=== PATIENT | female | born 1995 | race Caucasian/White ===

== ENCOUNTER 2021-05-02 08:54 | Emergency (ER) | payer BC, SELFPAY ==
[2021-05-02 09:07] VITALS: BP 141/93; PULSE 91; RESP 18; TEMP 36.2; O2SAT 100
--- NOTE | 2021-05-02 09:18 | ED.URI ---
HPI - URI/Sore Throat General Chief Complaint: Upper Respiratory Infection Stated Complaint: Sore Throat History of Present Illness HPI Narrative: This is a 25-year-old that comes in complaining of a sore throat states that she had it for approximately 3 days. Patient states that her symptoms sore throat has since resolved but she wakes up every morning and her throat is irritated with some sinus nasal drainage. Patient denies any fever nausea vomiting and/or diarrhea. Related Data Home Medications Medication Instructions Recorded Confirmed cetirizine [Zyrtec] 10 mg PO DAILY 05/02/21 05/02/21 Allergies Allergy/AdvReac Type Severity Reaction Status Date / Time No Known Allergies Allergy Verified 05/02/21 09:13 Review of Systems Review of Systems: CONSTITUTIONAL: Denies fever, chills, or sweats. EYES: Denies visual changes, redness, or discharge. ENT: Reports rhinorrhea, congestion, sore throat, or otalgia. CARDIOVASCULAR:Denies chest pain, palpitations, or edema. RESPIRATORY: Denies cough or dyspnea. GASTROINTESTINAL: Denies abdominal pain, nausea, vomiting, or diarrhea. GENITOURINARY: Denies dysuria or hematuria. SKIN:[Denies rash or itching. MUSCULOSKELETAL:Denies back pain, joint pain, or myalgia. NEUROLOGIC: Denies headache, numbness, or weakness. PSYCHIATRIC:Denies anxiety or depression PMFSH Comments At time as signature, I have reviewed and agree with nursing past medical, social, surgical and family history. Please see nursing chart for further information. There is no relevant family history pertinent to the presenting complaint. Exam Narrative: GENERAL:Well-appearing, well-nourished, and in no acute distress. HEAD:Normocephalic, atraumatic. EYES: PERRLA and EOMI. ENT: Nares clear, no rhinorrhea or epistaxis. Mucous membranes moist. Postnasal drainage tonsils normal size NECK: Supple. CHEST: Clear to auscultation. No respiratory distress. HEART: Regular rate and rhythm. ABDOMEN: Soft, nontender, nondistended, normal active bowel sounds. EXTREMITIES: Normal range of motion. No edema. SKIN: Warm, dry, no rash. NEURO: No focal deficits. Alert and oriented x3. Course Vital Signs Vital signs: Vital Signs Temperature 97.2 F L 08/03/21 09:07 Pulse Rate 91 05/02/21 09:07 Respiratory Rate 18 05/02/21 09:07 Blood Pressure 141/93 H 05/02/21 09:07 Pulse Oximetry 100 05/02/21 09:07 Temperature 97.2 F L 05/02/21 09:07 Pulse Rate 91 05/02/21 09:07 Respiratory Rate 18 05/02/21 09:07 Blood Pressure 141/93 H 05/02/21 09:07 Pulse Oximetry 100 05/02/21 09:07 MDM - URI/Sore Throat Differential Diagnosis Differential diagnosis: Likely upper respiratory infection, croup, otitis media, sinusitis, viral infection, bronchitis, influenza and pharyngitis Medical Records Attestation: I reviewed the patient's medical records. Lab Data Attestation: I reviewed the patient's lab results. Lab results narrative: Strep is negative Labs: Strep Screen Presumptive Negative *(Reference Range: Negative)* Discharge Plan Discharge Clinical Impression: Upper respiratory infection Qualifiers: URI type: unspecified viral URI Qualified Code(s): J06.9 - Acute upper respiratory infection, unspecified Patient Disposition: Home, Self-Care Condition: Stable Instructions: Antibiotic Form, Upper Respiratory Infection (ED), Chronic Hypertension (ED), Viral Syndrome (ED) Additional Instructions: Viral illness may last between 7-12days; antibiotic is NOT recommended at this time. Recommend antihistamine such as Benadryl at night time and Claritin/Zyrtec/Faith during the day Also, recommend symptomatic treatment includes: rest, fluids, and increase humidity of the air at home. Recommend Acetaminophen or nonsteroidal anti-inflammatory agents (NSAIDs) as directed in the bottle to reduce fever and/pain/headache. Avoid smoking/second-venegas
== END 2021-05-02 09:46 | disposition home or self-care (01) ==
PROVIDERS: Emergency Provider Nurse Practitioner Family
DX: J06.9 Acute upper respiratory infection, unspecified (principal)
CPT/HCPCS: 87081; 87880; 99203; G0463

== ENCOUNTER 2024-10-31 11:25 | Emergency (ER) | payer OTHER, SELFPAY ==
--- OUTSIDE RECORDS SUMMARY | 2024-10-31 11:27 | XMS_ITS | Referral Summary ---
Author Organization [facility] [employer] Address [address] [place] [address] Care Team Providers Care Beer Still Runner Compounder Name Role Phone Unavailable Primary Care Provider Unavailabl e Source Comments [facility],non-owned Affiliates and Associated Physician Practices is amultiple site organization consisting of ambulatory clinics and hospital sitesin [place], [place], [place] and [place]. This disclosure is being madepursuant to the Care Everywhere program and may not contain all information available regarding this patient. Last updated 18.[facility] [employer] Allergies No known active allergies Immunizations Name Administration Dates Next Due DTaP VACCINE IM (6wk-6yrs) 11/21/2001,,04/09/1997,02/16/1997, 1996 HEP B VACCINE, PED/ADOL 10/22/1997,06/11/1997, HIB-PRP-T 4 DOSE 10/22/1997,04/09/1997, 7,1996 MENINGOCOCCAL CONJUGATE (MCV4P) 04/28/2015 MENINGOCOCCAL MCV4O 05/09/2011 MMR 11/21/2001,10/22/1997 POLIO IPV 11/21/2001,04/09/1997,02/16/1997 ,1996 TDAP (7yrs+) 05/09/2011 Social History Tobacco Use Types Packs/Day Years Used Date Smoking Tobacco: Never Assessed Sex and Gender Information Value Date Recorded Sex Assigned at Not on file Gender Identity Not on file Sexual Orientation Not on file Plan of Treatment Not on file Administered Medications
--- OUTSIDE RECORDS SUMMARY | 2024-10-31 11:27 | XMS_ITS | Clinical Summary ---
Author Organization [facility] [employer] Address [address] [place] [address] Care Team Providers Care Forklift Driver Name Role Phone Unavailable Primary Care Provider Unavailabl e Source Comments [facility],non-owned Affiliates and Associated Physician Practices is amultiple site organization consisting of ambulatory clinics and hospital sitesin [place], [place], [place] and [place]. This disclosure is being madepursuant to the Care Everywhere program and may not contain all information available regarding this patient. Last updated 18.[facility] [employer] Allergies No known active allergies Immunizations Name [...] Orientation Not on file Plan of Treatment Health Maintenance Due Date Last Done Comments PAP SMEAR 1996 HIV SCREENING 2011 HEPATITIS C SCREENING 07/02/2014 DTAP/TDAP/TD VACCINES (7 - Td or Tdap) 05/09/2021 05/09/2011, 11/21/2001, 10/22/1997, Additional history exists COVID-19 VACCINE ( season) 2024 11/15/2020, 10/26/2020 INFLUENZA VACCINE (#1) 2024 07/08/2020 DEPRESSION SCREENING 09/30/2024 ZOSTER VACCINE (1 of 2) 2046 HEPATITIS B VACCINE Completed 10/22/1997, 06/11/1997, 04/09/1997 HIB VACCINE Completed 10/22/1997, 03/30, 02/16/1997, Additional history exists MENINGOCOCCAL VACCINE Completed 04/28/2015, 011 HPV VACCINE Aged Out No longer eligi ble based on patient's age to complete this topic MENINGOCOCCAL (Group B) VACCINE Aged Out No longer eligible based on patient's age to complete this topic PNEUMOCOCCAL VACCINE Aged Out No long er eligible based on patient's age to complete this topic
--- OUTSIDE RECORDS SUMMARY | 2024-10-31 11:27 | XMS_ITS | Patient Health Summary ---
Author Organization [facility] [employer] Address [address] [place] [address] Care Team Providers Care Software Product Manager Name Role Phone Unavailable Primary Care Provider Unavailabl e Note from [facility],non-owned Affiliates and Associated Physician Practices is amultiple site organization consisting of ambulatory clinics and hospital sitesin [place], [place], [place] and [place]. This disclosure is being madepursuant to the Care Everywhere program and may not contain all information available regarding this patient. Last updated 18.[facility] [employer] Allergies No known active allergies Immunizations * DTaP VACCINE IM (6wk-6yrs)(Given 11/21/2001, 10/22/1997, 04/09/1997, 02/16/1997, 1996) * HEP B VACCINE, PED/ADOL(Given 10/22/1997, 06/11/1997, 04/09/1997) * HIB-PRP-T 4 DOSE(Given 10/22/1997, 04/09/1997, 02/16/1997, 1996) * MENINGOCOCCAL CONJUGATE (MCV4P)(Given 04/28/2015) * MENINGOCOCCAL MCV4O(Given 05/09/2011) * MMR(Given 11/21/2001, 10/22/1997) * POLIO IPV(Given 11/21/2001, 04/09/1997, 02/16/1997, 1996) * TDAP (7yrs+)(Given 05/09/2011) Social History Tobacco Use Types Packs/Day Years Used Date Smoking Tobacco: Never Assessed Sex and Gender Information Value Date Recorded Sex Assigned at Not on file Gender Identity Not on file Sexual Orientation Not on file Procedures * SKIN TEST PPD - POINT OF CARE(Performed 04/22/2021) Performed for Encounter for screening for respiratory tuberculosis * SKIN TEST PPD - POINT OF CARE(Performed 06/05/2019) Performed for Screening examination for pulmonary tuberculosis Results * SKIN TEST PPD - POINT OF CARE (04/22/2021 10:34 AM CDT) Only the most recent of2 resultswithin the time period is included. PPD no show [facility] Other MISCELLANEOUS SAMPLE S / Unknown 04/22/2021 10:34 AM CDT Micki Rao APRN-[facility] - POINT OF CARE ORDERABLES [facility] [phone]
[2024-10-31 11:50] VITALS: BP 128/79; PULSE 74; RESP 16; TEMP 36.3; O2SAT 100
--- NOTE | 2024-10-31 12:35 | ED_ITS ---
HPI - URI/Sore Throat General Chief Complaint: Upper Respiratory Infection Stated Complaint: Left Ear Pain Time Seen by Provider: 10/31/24 12:25 Source: patient, family, RN notes reviewed and old records reviewed Mode of arrival: ambulatory Limitations: no limitations History of Present Illness HPI Narrative: 29 year old female who presents to [facility] care with complaints of bilateral ear pressure, tinnitus,with pain to her right ear for the past 4 days with cold symptoms for the past week duration with hoarseness scratchy sore throat.. Patient reports history of ear problems in past with previous ear tubes. Patient reports that she has been taking Sudafed and Mucinex for her symptoms., reports no fevers. MD elicited complaint: nasal congestion and other (ear pain,) Pertinent past history: tympanostony tubes Onset (ago): week(s) (cold symptoms 1 week with hoarseness and 4 days of ear pressure) Pain scale (0-10): 6 Able to tolerate fluids by mouth: Yes Treatments prior to arrival: other (mucinex, sudafed) Related Data Home Medications ?Medication ?Instructions ?Recorded ?Confirmed ?Last Taken ?Type semaglutide (weight loss) subcut 10/31/24 Unknown History Allergies Allergy/AdvReac Type Severity Reaction Status Date / Time tramadol Allergy Severe Nausea Verified 10/31/24 12:16 Review of Systems Review of Systems: CONSTITUTIONAL: Denies malaise, chills, sweats, or fever. EYES: Denies visual changes, redness, or discharge. ENT: Reports rhinorrhea, congestion, sinus pain, right otalgia and scratchy sore throat. CARDIOVASCULAR: Denies chest pain, palpitations, or edema. RESPIRATORY: Reports dry cough.? Denies dyspnea. GASTROINTESTINAL: Denies abdominal pain, nausea, vomiting, diarrhea SKIN: Denies rash or itching. MUSCULOSKELETAL: Denies myalgia. NEUROLOGIC: Denies headache. All systems reviewed & are unremarkable except as noted in HPI and below PMFSH Past Medical History Medical History Hypothyroid Anxiety Surgical History Surgical History History of placement of ear tubes Family History Family History Other Lung cancer Social History Social History Smoking status: Never smoker Alcohol intake: never Substance use: never Substance use type: does not use Living arrangements: with friend(s) Occupation/Education: occupation Gender identity (if verbalized by the patient): Female Sexual Orientation (if Verbalized by the Patient): Straight or Heterosexual Comments At time of signature, agree with nursing past medical, surgical, social and family history. There is no relevant family history pertinent to the presenting complaint Exam Narrative: GENERAL: Well-appearing, well-nourished, obese and in no acute distress. HEAD: Normocephalic EYES: PERRLA, conjunctivae clear ENT: Nares clear, turbinates edematous and erythematous, clear discharge. Mucous membranes moist.Right TM red and bulging, Left TM pearly sarmiento with dull light reflex; no tragal tenderness. Oropharynx erythematous without lesions. Tonsils not enlarged and without exudate, no drooling, positive for hoarseness, no trismus, uvula midline. NECK: Supple. No lymphadenopathy CHEST: Clear to auscultation, breath sounds equal. No wheezing, rhonchi, rales, or stridor. No respiratory distress, speaks in full sentences.SAO2 100% on room air HEART: Regular rate and rhythm. No murmur heard. SKIN: Warm, dry, no rash. NEURO: Alert and oriented x3. PSYCH: Normal mood and affect Course Course Emergency Course: Patient is aware of diagnosis, understands and agrees to treatment plan.? Anticipatory guidance given.? Patient agrees to follow-up as directed and is aware of reasons to seek care at the emergency department. Portions of this record may have been created with voice recognition software Level of Care: Express Care Visit Vital Signs Vital signs: Vital Signs Temperature 36.3 C L 10/31/24 11:50 Pulse Rate 74 10/31/24 11:50 Respiratory Rate 16 10/31/24 11:50 Blood Pressure 128/79 10/31/24 11:50 Pulse Oximetry 100 10/31/24 11:50 Oxygen Delivery Room Air 10/31/24 11:50 Temperature 36.3 C L 10/31/24 11:50 Pulse Rate 74 10/31/24 11:50 Respiratory Rate 16 10/31/24 11:50 Blood Pressure 128/79 10/31/24 11:50 Pulse Oximetry 100 10/31/24 11:50 Oxygen Delivery Room Air 10/31/24 11:50 Reviewed MDM - URI/Sore Throat MDM Narrative Medical decision making narrative: Differential diagnosis considered: Mariano virus, strep pharyngitis, allergic rhinitis, upper respiratory tract infection, sinusitis, rhinosinusitis, nasopharyngitis. viral pharyngitis, otitis media, otitis externa, pneumonia, bronchitis, viral cough syndrome, viral syndrome, and influenza.? Exam findings show no acute concerns or changes; patient is non-toxic appearing and is in no distress.? Patient is appropriate for outpatient treatment and follow-up. Differential Diagnosis Differential diagnosis: Likely upper respiratory infection, otitis media, viral infection and pharyngitis Medical Records Attestation: I reviewed the patient's medical records. Lab Data Attestation: I reviewed the patient's lab results. Critical Care Time Critical Care Time Critical Care Time: No Discharge Plan Discharge Clinical Impression: Otitis media Qualifiers: Otitis media type: serous Chronicity: acute Laterality: right Recurrence: not specified as recurrent Qualified Code(s): H65.01 - Acute serous otitis media, right ear Patient Disposition: Home, Self-Care Condition: Stable Instructions: Antibiotic Form Additional Instructions: Increase fluids especially juices and water [id number] cough and cold medicine of your choice for your symptoms Zyrtec Claritin or Faith daily include Flonase nasal spray Steroids as directed--take with food heat to the face 20-30 minutes 4-6 times a day for pain Salt water gargles, throat lozenges or throat sprays as desired Antibiotic as directed--finished the medication If your symptoms persist, change or worsen significantly before you can contact your personal physician then please, without delay, go to the emergency department for further evaluation. Follow-up with PCP in 7-10 days or sooner if needed Follow up with PCP soon in regards to your blood pressure which is elevated above threshold for referral. Blood pressure above 120/80 may indicate pre- hypertension. Minimal systolic elevation 128/79 Patient Language: Turkmen Prescriptions: New amoxicillin-pot clavulanate 875-125 mg tablet 1 tablet PO Q12H Qty: 20 0RF Rx Instructions: Take probiotic or eat activity yogurt while on this medication prednisone 20 mg tablet 40 mg PO DAILY 5 Days Qty: 10 0RF No Action semaglutide (weight loss) [Wegovy] subcut Follow-up/Referrals: PHYSICIAN NOT ON STAFF,NONSTAFF [Primary Care Provider] - Time of Disposition: 12:50 Quality Griffin Coma Scale Eyes: Open Verbal: Oriented and Alert Motor: Follows Commands Griffin Coma Total Score: 15
== END 2024-10-31 12:52 | disposition home or self-care (01) ==
PROVIDERS: Emergency Provider Registered Nurse
DX: H65.01 Acute serous otitis media, right ear (principal); E03.9 Hypothyroidism, unspecified
CPT/HCPCS: 99213; G0463